=== PATIENT | female | born 2005 | race Caucasian/White ===

== ENCOUNTER 2025-09-01 08:37 | Emergency (ER) | payer BC, SELFPAY ==
--- OUTSIDE RECORDS SUMMARY | 2025-08-21 14:15 | XMS_ITS | Encounter Summary ---
Author Organization [facility] tem Address [id number] [address] [place] [address] Care Team Providers Care Gauge Maker Name Role Phone Foster Cruz PA-C Primary Care Provider [phone] Reason for Visit * Reason Comments Injection Patient presents for a depo provera injection. Encounter Details Date Type Department Care Team (Latest Contact Info) Description 08/21/2025 2:15 PM EDT Procedure visit [facility] [address] [facility] [place] [address] Althea Monterroso, DIGITAL RETOUCHER-MANDREL MAKER [address] [place], [place] [id number] Encounter for surveillance of injectable contraceptive (Primary Dx) Social History Tobacco Use Types Packs/Day Years Used Date Smoking Tobacco: Never Smokeless Tobacco: Never Alcohol Use Standard Drinks/Week Comments No 0 (1 standard drink = 0.6 oz pur e alcohol) Pt states attempted once. PHQ-2 Answer Date Recorded Total Score 1 06/02/2025 Childcare Answer Date Recorded Childcare Unknown 05/01/2019 Employment Answer Date Recorded Employment Unknown 05/01/2019 Hunger Screening Answer Date Recorded Within the past 12 months we worried whether our food would run out before we got money to buy more. Never True 08/21/2025 Within the past 12 months th e food we bought just didn't last and we didn't have money to get more. Never True 08/21/2025 Purpose - Life Answer Date Recorded Purpose and direction in life Unknown Comments No Sex and Gender Information Value Date Recorded Sex Assigned at Not on file Legal Sex Female 6:56 PM EDT Gender Identity Not on file Sexual Orientation Not on file documented as of this encounter Last Filed Vital Signs Vital Sign Reading Time Taken Comments Blood Pressure 104/60 08/21/2025 2:13 PM EDT Pulse - - Temperature - - Respiratory Rate - - Oxygen Saturation - - Inhaled Oxygen Concentration - - Weight 48.3 kg (106 lb 6.4 oz) 08/21/2025 2:13 P M EDT Height 162.6 cm (5' 4 ) 08/21/2025 2:13 PM EDT Body Mass Index 18.26 08/21/2025 2:13 PM EDT documented in this encounter Progress Notes * Destiny Saha MA - 08/21/2025 2:15 PM EDT Patient is here for DepoProvera IM administration. Medical history reviewed. Pt denies abnormal bleeding, concerns related to Depo. Injection administered to __left gluteal . Pt tolerated well, no adverse reactions noted. Patient to return to clinic for next Depo Administration in 10-12 weeks or PRN. Depo calendar given. * JANELLE Hastings - 08/21/2025 2:15 PM EDT Patient here for depo provera, not seen by provider. Depo administered by VALENTIN / nurse and patient tolerated well. Due for next annual roller skate repairer exam May 2026. JANELLE Hastings 08/21/25 1457 documented in this encounter Plan of Treatment Upcoming Encounters Date Type Department Care Team (Late st Contact Info) Description 11/06/2025 2:15 PM EST Procedure visit [facility] [address] [place] [address] Althea Monterroso APRN-MANDREL MAKER [address] [place] [address] documented as of this encounter Visit Diagnoses Diagnosis Encounter for surveillance of injectable contraceptive- Primary documented in this encounter Administered Medications Inactive Administered Medications - up to 3 most recent administrations Medication Order MAR Action Action Date Dose Rate Site medroxyPROGESTERone (DEPO-PROVERA) injection 150 mg 150 mg, intramuscular, Once, On Damari 08/21/25 at 1445, For 1 dose, Look-alike/sound-alike medication - verify indication for use., Indications: contraceptionIndications: contraception Given 08/21/2025 2:41 PM EDT 150 mg Left Upper Outer Quadrant documented in this encounter Additional Health Concerns Assessment Noted Time PHQ-9 Depression Total Score: 1 06/02/20 25 3:26 PM EDT documented as of this encounter Care Teams Gauge Maker Relationship Specialty Start Date End Date Foster Cruz PA-C PCP - General Physician Hand Ironer 10/04/23 08/26/25 documented as of this encounter
[2025-09-01 08:41] VITALS: BP 108/71; PULSE 69; TEMP 36.5; O2SAT 99; BMI 18.2
[2025-09-01 09:04] LABS: Glucose Urine UA NEGATIVE (NEGATIVE)
--- NOTE | 2025-09-01 09:04 | CT_ITS ---
[address] [address] Patient Name: FERNANDO BENNETT MRN: [id number] date: 2005 Sex: F Assigned Patient Location: ED.MAIN Current Patient Location: ED.MAIN Accession/Order Number: [id number] Exam Date: 09/01/2025 09:18 Report Date: 09/01/2025 09:32 At the request of: REYNALDO OTERO MD Procedure: CT abdomen pelvis wo con CT abdomen pelvis wo con 09/01/2025 9:21 AM SIGNS AND SYMPTOMS: ^left flank pain, r/o stone TECHNIQUE: Multidetector ct axial images of the abdomen and pelvis were obtained without IV contrast. Multiplanar reformats were performed and reviewed to further define anatomy and possible pathology. CT was performed with one or more of the following dose reduction techniques: Automated exposure control, adjustment of the mA and/or kV according to patient size, or use of iterative reconstruction technique. COMPARISON: None. FINDINGS: Lower Chest: Within normal limits. ABDOMEN: Liver: Within normal limits. Bile Ducts: Normal caliber. Gallbladder: Previously removed Pancreas: Within normal limits. Spleen: Within normal limits. Adrenals: Within normal limits. Kidneys: Nonobstructing renal stones are present bilaterally measuring up to 2 mm in greatest dimension. No hydronephrosis. Pelvis: Reproductive Organs: No pelvic masses. Ureters: Within normal limits. Bladder: Within normal limits. Bowel: There is a normal appendix in the right lower quadrant. Mesenteric Lymph Nodes: No enlarged mesenteric lymph nodes. Peritoneum: No ascites or free air, no fluid collection. Vessels: within normal limits Retroperitoneum: Within normal limits. Abdominal Wall: Within normal limits. Bones: Within normal limits. CT/CT abdomen pelvis wo con IMPRESSION: No bowel obstruction or obstructive uropathy. No evidence of free fluid or free air. Nonobstructing renal stones are noted bilaterally measuring up to 2 mm in greatest dimension. There is a normal appendix in the right lower quadrant. Impression dictated by: Elijah Pina M.D. 09/01/2025 9:32 AM Dictation Location: [place] [address] Electronically authenticated by: [id number] Date: 09/01/2025 09:32
[2025-09-01 09:05] LABS: HCG Qualitative Urine* NEGATIVE (NEGATIVE)
--- NOTE | 2025-09-01 09:05 | ED_ITS ---
HPI HPI - General Adult General Chief complaint: Urogenital-Female Stated complaint: LEFT SIDE PAIN, DIZZINESS Time Seen by Provider: 09/01/25 08:42 Source: patient and family Mode of arrival: walk-in History of Present Illness HPI narrative: 20-year-old female presents for left flank pain. No injury. She has been having issues like this on and off since June, 2 months ago. She had an ultrasound which showed a possible kidney stone but she has not seen a urologist. No gross hematuria recently. No fever or vomiting. The pain is now in the left side of her abdomen. Related Data Home Medications ?Medication ?Instructions ?Recorded ?Confirmed ketorolac 10 mg tablet mg 09/01/25 medroxyprogesterone 150 mg/mL 300 mg IM .monthly 09/0109/01/25 intramuscular suspension (Depo-Provera) ondansetron 4 mg disintegrating mg 09/01/25 tablet tamsulosin 0.4 mg capsule mg PO 09/01/25 Allergies Allergy/AdvReac Type Severity Reaction Status Date / Time No Known Drug Allergies Allergy Verified 09/01/25 08:52 Opioid HPI Opioid Management Most Recent Opioid Data: Last Pain Scale 8 Today, 08:55 Review of Systems ROS Narrative A ten point review of systems is negative except as noted above. PFSH PFSH Social History Little interest or pleasure in doing things: not at all Feeling down, depressed, or hopeless: not at all Exam Narrative Exam Narrative: Nurses note and vital signs reviewed and patient is not hypoxic. General:The patient appears in no apparent distress.Patient is resting comfortably on cart. Skin:Warm, dry, no pallor noted.There is no rash noted, including in the flank area. Head:Normocephalic, atraumatic Eye: Normal conjunctiva, no drainage Ears, Nose, Mouth, and Throat: oral mucosa is moist. Nares patent. Cardiovascular:Regular Rate and Rhythm Respiratory:Patient is in no distress, no accessory muscle use, lungs are clear to auscultation, no wheezing, rales or rhonchi Back:non-tender, no bruise or rash present GI: Minimal tenderness on the left side of her abdomen without distention or mass Musculoskeletal: The patient has no evidence of calf tenderness, no pitting edema, symmetrical pulses noted bilaterally Neurological:A&O, normal speech Psychiatric:Cooperative Constitutional Vital Signs, click to edit/add: Last Vital Signs Temp 97.7 F 09/01/25 08:41 Pulse 69 09/01/25 08:41 Resp 16 09/01/25 08:41 BP 108/71 09/01/25 08:41 Pulse Ox 99 09/01/25 08:41 O2 Del Method Room Air 09/01/25 08:41 Course Vital Signs Vital signs: Vital Signs Temperature 97.7 F 09/01/25 08:41 Pulse Rate 69 09/01/25 08:41 Respiratory Rate 16 09/01/25 08:41 Blood Pressure 108/71 09/01/25 08:41 Pulse Oximetry 99 09/01/25 08:41 Oxygen Delivery Method Room Air 09/01/25 08:41 Temperature 97.7 F 09/01/25 08:41 Pulse Rate 69 09/01/25 08:41 Respiratory Rate 16 09/01/25 08:41 Blood Pressure 108/71 09/01/25 08:41 Pulse Oximetry 99 09/01/25 08:41 Oxygen Delivery Method Room Air 09/01/25 08:41 Medical Decision Making MDM Narrative Medical decision making narrative: CT scan shows a small stone in each kidney but no obstruction and no ureteral stones. Urinalysis is negative, no blood or evidence of infection. She is not . She is referred to urology. Treatment diagnosis and follow-up were discussed with the patient and her parents. Differential Diagnosis Differential Diagnosis: Kidney stone, muscle pain, UTI Lab Data Lab results reviewed: Yes I reviewed the patient's lab results Labs: Lab Results 09/01/25 09/01/25 Range/Units 08:56 09:13 WBC 8.8 (4.0-11.0) 10^3/uL RBC 4.60 (4.20-5.40) 10^6/uL Hgb 14.0 (12.0-16.0) g/dL Hct 40.8 (36.0-48.0) % MCV 88.7 (81.0-99.0) fL MCH 30.4 (26.7-34.0) pg MCHC 34.3 (29.9-35.2) g/dL RDW 12.0 (11.0-15.0) % Plt Count 288 (150-450) 10^3/uL MPV 11.2 (9.5-13.5) fL Neut % (Auto) 68.1 (43.0-75.0) % Lymph % (Auto) 22.9 (20.5-60.0) % [place] % (Auto) 6.4 (1.7-12.0) % Eos % (Auto) 1.5 (0.9-7.0) % Baso % (Auto) 1.0 (0.2-2.0) % Neut # (Auto) 6.0 (1.4-6.5) 10^3/uL Lymph # (Auto) 2.0 (1.2-3.8) 10^3/uL Jewell # (Auto) 0.6 (0.3-0.8) 10^3/uL Eos # (Auto) 0.1 (0.0-0.7) 10^3/uL Baso # (Auto) 0.1 (0.0-0.1) 10^3/uL Abs Immat Gran (auto) 0.01 (0.00-0.03) 10^3/uL Imm/Tot Granulo (auto) 0.1 (0.0-0.5) % Sodium 142 (136-145) mmol/L Potassium 3.8 (3.5-5.1) mmol/L Chloride 106 (98-107) mmol/L Carbon Dioxide 25.4 (21.0-32.0) mmol/L Anion Gap 14.4 BUN 10.0 (7.0-18.0) mg/dL Creatinine 0.48 L (0.55-1.02) mg/dL Est GFR ( Amer) >60 (>=60 mL/min/1.73m^2) Est GFR (Non-Af Amer) >60 (>=60 mL/min/1.73m^2) BUN/Creatinine Ratio 20.8 Glucose 90 (74-106) mg/dL Calcium 9.1 (8.5-10.1) mg/dL Urine Color Yellow (YELLOW) Urine Clarity Clear (CLEAR) Urine pH 6.0 (5.0-9.0) Ur Specific [place] 1.025 (1.005-1.025) Urine Protein Negative (NEG/TRACE) mg/dL Urine Glucose (UA) Negative (NEGATIVE) mg/dL Urine Ketones Negative (NEGATIVE) mg/dL Urine Occult Blood Negative (NEGATIVE) Urine Nitrite Negative (NEGATIVE) Urine Bilirubin Negative (NEGATIVE) Urine Urobilinogen 0.2 (0.2-1.0) EU/dL Ur Leukocyte Esterase Negative (NEGATIVE) Urine RBC 0-2 (0-2) #/HPF Urine WBC None seen (NONE SEEN) #/HPF Ur Squamous Epith Cells Few A (NONE/RARE) #/LPF Urine Crystals None seen (None Seen) #/HPF Urine Bacteria Trace A (NONE SEEN) #/HPF Urine Casts None seen (NONE SEEN) #/LPF Urine Mucus None seen (NONE SEEN) Ur Culture Indicated? No Urine HCG, Qual Negative (NEGATIVE) Imaging Data CT scan - abdomen: Radiologist's impression: ITS Impressions Abdomen/Pelvis CT 09/01/25 09:04 IMPRESSION: No bowel obstruction or obstructive uropathy. No evidence of free fluid or free air. Nonobstructing renal stones are noted bilaterally measuring up to 2 mm in greatest dimension. There is a normal appendix in the right lower quadrant. Impression dictated by: Elijah Pina M.D. 09/01/2025 9:32 AM Dictation Location[email or web address] Electronically authenticated by: [id number] Y Date: 09/01/2025 09:32 Discharge Plan Discharge Chief Complaint: Urogenital-Female Clinical Impression: Flank pain Patient Disposition: Home, Self-Care Time of Disposition Decision: 09:56 Condition: Good Mode of Transportation: Private Vehicle Prescriptions / Home Meds: No Action ketorolac 10 mg tablet tamsulosin 0.4 mg capsule PO ondansetron 4 mg tablet,disintegrating medroxyprogesterone [Depo-Provera] 150 mg/mL suspension 300 mg IM .monthly Print Language: Lao Instructions: Flank Pain (ED) Referrals: [facility] [Primary Care Provider, Unknown] - 1 week Jason Chan MD [Physician, Urology]
--- OUTSIDE RECORDS SUMMARY | 2025-09-01 09:19 | XMS_ITS | Clinical Summary ---
Author Organization [facility] tem Address [id number] [address] [place] [address] Care Team Providers Care Blender Conveyor Operator Name Role Phone GonzálesSuzanna gustafsonpayam Terrazas APRN-MARKETING ANALYTICS SPECIALIST Primary Care Provide r Allergies No known active allergies Medications medroxyPROGESTERon e (DEPO-PROVERA) 150 mg/mL injection Inject 1 mL (150 mg total) into the appropriate muscle every 3 (three) months. Active ketorolac (TORADOL) 10 mg tablet Take 1 tablet (10 mg total) by mouth every 6 (six) hours as needed for pain. 20 tablet 08/15/20 25 Active ondansetron ODT (ZOFRAN ODT) 4 mg disintegrating tablet Dissolve 1 tablet (4 mg total) on tongue every 6 (six) hours as needed for nausea or vomiting for up to 30 days. 10 tablet 08/15/20 25 025 Active Hospital, Clinic, or Other Facility Administered Medication Ordered Dose Route Frequency Start Date End Date Status medroxyPROGESTERone (DEPO-PROVERA) injection 150 mgIndications: contraception 150 mg IM Once 08/21/2025 08/21/2025 Ended Active Problems No known active problems Encounters Date Type Department Care Team Description 08/21/2025 2:15 PM EDT Procedure visit [facility]necolo gy [address] [place] [id number] Althea Monterroso, WINSTON-MARKETING ANALYTICS SPECIALIST Encounter for surveillance of injectable contraceptive (Primary Dx) 08/21/2025 Travel 08/15/2025 9:23 AM EDT - 08/15/2025 12:19 PM EDT Emergency [facility] - Emergency [address] [place] [phone] Judi Garnett DO Right flank pain (Primary Dx); Right lower quadrant abdominal pain Discharge Disposition: Home 08/15/2025 Travel 06/24/2025 2:29 PM EDT - 06/24/2025 11:59 PM EDT Hospital Encounter [facility] - CT Imaging [address] [place] [address] RLQ abdominal pain Discharge Disposition: Home 06/24/2025 Travel 06/05/2025 Results Follow-Up [facility]necolo [facility] [address] [place] [id number] Yennifer Bennett, MD [facility]ERGY IMMUNOLOGY[facility] Thin Prep Pap Test 06/02/2025 3:30 PM EDT Office Visit [facility]/Gynecolo gy [address] [place] [address] Yisel Mitchell MD Encounter for gynecological examination (general) (routine) without abnormal findings (Primary Dx); Encounter for surveillance of injectable contraceptive; Cervical smear, as part of routine gynecological examination 06/01/2025 Travel from Last 3 Months Family History Medical History Relation Name Comments No Known Problems Father Epilepsy Mother Breast cancer Neg Hx Colon cancer Neg Hx Ovarian cancer Neg Hx Uterine cancer Neg Hx Relation Name Status Comments Father Alive Mother Alive Social History Tobacco Use Types Packs/Day Years [...] on file Sexual Orientation Not on file Last Filed Vital Signs Vital Sign Reading Time Taken Comments Blood Pressure 104/60 08/21/2025 2:13 PM EDT Pulse 79 08/15/2025 12:14 PM EDT Temperature 36.5 C (97.7 F) 08/15/2025 9:28 AM EDT Respiratory Rate 18 08/15/2025 12:14 PM EDT Oxygen Saturation 100% 08/15/2025 12:14 PM EDT Inhaled Oxygen Concentration - - Weight 48.3 kg (106 lb 6.4 oz) 08/21/2025 2:13 P M EDT Height 162.6 cm (5' 4 ) 08/21/2025 2:13 PM EDT Body Mass Index 18.26 08/21/2025 2:13 PM EDT Plan of Treatment Upcoming Encounters Date Type Department Care Team (Late st Contact Info) Description 11/06/2025 2:15 PM EST Procedure visit [facility]ne[facility] [address] [facility] [phone] Althea Monterroso, MD ALLERGY IMMUNOLOGY-MARKETING ANALYTICS SPECIALIST [address] [place], [place] [id number] Health Maintenance Due Date Last Done Comments Chlamydia Screening 2004 Adult BMI Follow Up Plan 2022 Influenza Vaccine 07/21/2025 DTaP,Tdap and Td Vaccines (7 - Td or Tdap) 04/29/2026 04/29/2016, 06/04/2009, 06/07/2005, Additional history exists Depression Screening 06/02/2026 06/02/2025 Adult BMI Screening 08/21/2026 08/21/2025 Tobacco Screening 08/21/2026 08/21/2025 Pap Smear 06/02/2028 06/02/2025 Medical Devices Not on file Procedures Procedure Name Priority Date/Time Associated Diagnosis Comments US RETROPERITONEAL COMPLETE STAT 08/15/2025 10:30 AM EDT EXTRA TUBES BLUE TOP Routine 08/15/2025 9:54 AM EDT EXTRA TUBES Routine 08/15/2025 9:54 AM EDT BASIC METABOLIC PANEL STAT 08/15/2025 9:54 AM EDT CBC WITH AUTO DIFFERENTIAL STAT 08/15/2025 9:54 AM EDT POCT , URINE (NUCG) Routine 08/15/2025 9:45 AM EDT POCT NURSING URINE MACROSCOPIC UA Routine 08/15/2025 9:44 AM EDT ER EXTRA URINE MARBLE STAT 08/15/2025 9:42 AM EDT ER EXTRA URINE STAT 08/15/2025 9:42 AM EDT URINALYSIS Routine 06/25/2025 2:27 PM EDT Tubulo-interstitial nephritis, not specified as acute or chronic URINE CULTURE Routine 06/25/2025 2:27 PM EDT Tubulo-interstitial nephritis, not specified as acute or chronic CT ABDOMEN AND PELVIS WO CONT STAT 06/24/2025 3:26 PM EDT RLQ abdominal pain BILIRUBIN, DIRECT Routine 06/24/2025 2:2 3 PM EDT Right lower quadrant pain URINALYSIS Routine 06/24/2025 2:23 PM EDT Right lower quadrant pain COMPREHENSIVE METABOLIC PANEL Routine 06/24/2025 2:23 PM EDT Right lower quadrant pain CBC WITH AUTO DIFFERENTIAL Routine 06/24/2025 2:23 PM EDT Right lower quadrant pain , URINE Routine 06/24/2025 2:21 PM EDT Right lower quadrant pain THIN PREP PAP TEST Routine 06/02/2025 4: 15 PM EDT Cervical smear, as part of routine gynecological examination from Last 3 Months Results * Ultrasound retroperitoneal complete (08/15/2025 10:30 AM EDT) Anatomical Region Laterality Modality Body Ultrasound 08/15/2025 10:3 7 AM EDT Narrative 08/15/2025 10:40 AM EDT HISTORY: A 20-year-old female with a history of the abdominal and flank pain. Nephrolithiasis is suspected. TECHNIQUE: Multiple real-time images of the both kidneys and the urinary bladder are obtained. Color Doppler study is performed. COMPARISON: Comparison is made with the CT scan of the abdomen and pelvis of 06/24/2025. FINDINGS: Both kidneys are normal in position and configuration. Right kidney measures 10.6 x 3.2 x 5.3 Cms. Right renal cortical thickness measures 0.6 Cms . Left kidney measures 10.0 x 3.6 x 5.0 Cms. Left renal cortical thickness measures 0.5 Cms. There are multiple tiny echogenic foci in the both kidneys suggestive of calculi. No evidence of significant hydronephrosis in the either kidney. Renal cortical echoes are within normal limits. No evidence of cystic or solid renal mass. Prevoid urinary bladder volume is 313 mL. Bilateral ureteric jets are visualized. No intraluminal abnormality seen. Post void examination reveals small amount of residual urine and measures 13 mL. IMPRESSION: * Bilateral intrarenal echogenic calculi. No evidence of hydronephrosis. * No evidence of cystic or solid renal mass. * Small amount of post void residual urine and measures 13 mL. Finalized by Shaq Rodas MD on 08/15/2025 10:40 AM Procedure Note Shaq Rodas MD - 08/15/2025 HISTORY: A 20-year-old female with a history of the abdominal and flankpain. Nephrolithiasis is suspected. TECHNIQUE: Multiple real-time images of the both kidneys and the urinarybladder are obtained. Color Doppler study is performed. COMPARISON: Comparison is made with the CT scan of the abdomen and pelvisof 06/24/2025. FINDINGS: Both kidneys are normal in position and configuration. Rightkidney measures 10.6 x 3.2 x 5.3 Cms. Right renal cortical thicknessmeasures 0.6 Cms . Left kidney measures 10.0 x 3.6 x 5.0 Cms. Leftrenal cortical thickness measures 0.5 Cms. There are multiple tiny echogenic foci in the both kidneys suggestive ofcalculi. No evidence of significant hydronephrosis in the either kidney. Renal cortical echoes are within normal limits. No evidence of cystic orsolid renal mass. Prevoid urinary bladder volume is 313 mL. Bilateral ureteric jets arevisualized. No intraluminal abnormality seen. Post void examinationreveals small amount of residual urine and measures 13 mL. IMPRESSION: * Bilateral intrarenal echogenic calculi. No evidence ofhydronephrosis. * No evidence of cystic or solid renal mass. * Small amount of post void residual urine and measures 13 mL. Finalized by Shaq Rodas MD on 08/15/2025 10:40 AM us Judi Garnett DO IMG US ORDERABLES Final Resu lt * Light Blue Top (08/15/2025 9:54 AM EDT) Extra Tube Auto Resulted 08/15/2025 11:[address] [facility] Blood Venous blood / Unknown 08/15/2025 9:54 AM EDT 08/15/2025 9:56 AM EDT us Judi Garnett DO LAB BLOOD ORDERABLES Final R esult [facility] [address] [place] [address], [place] * CBC auto differential (08/15/2025 9:54 AM EDT) Only the most recent of2 resultswithin the time period is included. Pathologist [facility] WBC 7.5 4 - 11 x10E9/L 08/15/2025 10:[address] [facility] RBC Count 4.67 3.8 - 5.2 X10E12/L 08/15/2025 10:[address] [facility] Hemoglobin 14.0 11.7 - 15.5 g/dL 08/15/2025 10:[address] [facility] Hematocrit 41.0 35 - 47 % 08/15/2025 10:[address] [facility] MCV 88 80 - 100 fL 08/15/2025 10:[address] [facility] MCH 30.1 27 - 34 pg 08/15/2025 10:[address] [facility] MCHC 34.2 32 - 36 g/dL 08/15/2025 10:[address] [facility] RDW 12.6 11.5 - 15 % 08/15/2025 10:[address] [facility] Platelet Count 268 150 - 450 X10E9/L 08/15/2025 10:[address] [facility] MPV 9.2 7 - 12 fL 08/15/2025 10:[address] [facility] Neutrophils % 62.7 % 08/15/2025 10:[address] [facility] Lymphocytes % 28.1 % 08/15/2025 10:[address] [facility] Monocytes % 7.3 % 08/15/2025 10:[address] [facility] Eosinophils % 1.0 % 08/15/2025 10:[address] [facility] Basophils % 0.9 % 08/15/2025 10:[address] [facility] Neutrophils Absolute (A) 4.7 1.5 - 6.6 10*3/uL 08/15/2025 10:[address] [facility] Lymphocytes Absolute 2.1 1.0 - 3.5 10*3/uL 08/15/2025 10:[address] [facility] Monocytes Absolute 0.6 0.0 - 0.9 10*3/uL 08/15/2025 10:[address] [facility] Eosinophils Absolute 0.1 0.0 - 0.4 10*3/uL 08/15/2025 10:[address] [facility] Basophils Absolute 0.1 0.0 - 0.2 10*3/uL 08/15/2025 10:[address] [facility] Differential Type AUTOMATED DIFFERENTIAL 08/15/2025 10:[address] [facility] Blood Venous blood / Unknown Venipuncture / Unknown 08/15/2025 9:54 AM EDT 08/15/2025 9:56 AM EDT us Judi Garnett DO LAB BLOOD ORDERABLES Final R esult Performing Organization Address City/State/[facility] Co de Phone Number [facility] [address] [place] [address], * (ABNORMAL) Basic Metabolic Panel (08/15/2025 9:54 AM EDT) SODIUM 140 134 - 146 mmol/L 08/15/2025 10:[address] [facility] POTASSIUM 3.3(L) 3.5 - 5.0 mmol/L 08/15/2025 10:[address] [facility] CHLORIDE 108 98 - 109 mmol/L 08/15/2025 10:[address] [facility] CARBON DIOXIDE 21(L) 22 - 32 mmol/L 08/15/2025 10:[address] [facility] ANION GAP 11 5 - 15 mmol/L 08/15/2025 10:[address] [facility] BLOOD UREA NITROGEN 10 5 - 23 mg/dL 08/15/2025 10:[address] [facility] CREATININE 0.48 0.40 - 1.00 mg/dL 08/15/2025 10:[address] [facility] Comment:METHOD TRACEABLE TO IDMS STANDARD GLUCOSE 98 65 - 99 mg/dL 08/15/2025 10:[address] [facility] CALCIUM 9.5 8.5 - 10.5 mg/dL 08/15/2025 10:[address] [facility] EGFR Non-Race Dependent >90 >=60 ml/min/1.7 3sq.m 08/15/2025 10:[address] [facility] Comment: eGFR not reported due to non-numeric value for Creatinine. Reported eGFR is based on the CKD-EPI 2020 equation that does not use a race coefficient. Blood Venous blood / Unknown Venipuncture / Unknown 08/15/2025 9:54 AM EDT 08/15/2025 9:56 AM EDT us Judi Garnett DO LAB BLOOD ORDERABLES Final R esult Performing Organization Address City/[facility]/ZIP Co de Phone Number [address] [place] [address], [place] * POCT , urine (08/15/2025 9:45 AM EDT) [facility] POC Urine Negative Negative, Indeterminate 08/15/2025 9:[address] [facility] Urine 08/15/2025 9:45 AM EDT 08/15/2025 9:52 AM EDT us Judi Garnett DO POINT OF CARE TEST ORDERABLE S Final Result Performing Organization Address City/[facility]/ZIP Co de Phone Number [address] [address], [place] * (ABNORMAL) POCT Nursing Urine Macroscopic UA (08/15/2025 9:44 AM EDT) Pathologist [facility] POC Urine Specific [place] 1.010 1.010, 1.015, 1.020, 1.025 08/15/2025 9:[address] [facility] POC Urine Leukocyte Esterase Negative Negative 08/15/2025 9:[address] [facility] POC Urine Nitrite Negative Negative 08/15/2025 9:[address] [facility] POC Urine pH 6.5 5.0, 6.0, 6.5, 7.0, 7.5, 8.0, 8.5, 5.5 08/15/2025 9:[address] [facility] POC Urine Protein Negative Negative 08/15/2025 9:[address] [facility] POC Urine Glucose Negative Negative 08/15/2025 9:[address] [facility] POC Urine Ketones Negative Negative 08/15/2025 9:[address] [facility] POC Urine Urobilinogen 0.2 E.U./dL 08/15/2025 9:[address] [facility] POC Urine Bilirubin Negative Negative 08/15/2025 9:[address] [facility] POC Urine Blood/HGB Trace(A) Negative 08/15/2025 9:[address] [facility] Urine 08/15/2025 9:44 AM EDT 08/15/2025 9:46 AM EDT us Judi Garnett DO POINT OF CARE TEST ORDERABLE S Final Result Performing Organization Address City/State/[facility] de Phone Number [facility] [address] [place] [address], * Extra Urine [place] (08/15/2025 9:42 AM EDT) Extra Tube Auto Resulted 08/15/2025 11:[address] [facility] Urine Urine specimen collection, clean catch / Unknown 08/15/2025 9:42 AM EDT 08/15/2025 9:57 AM EDT us Judi L Fenton DO URINE ORDERABLES Final Resul t Performing Organization Address City/[facility]/ZIP Co de Phone Number [address] [place] [address], [place] * Extra Urine (08/15/2025 9:42 AM EDT) Extra Tube Auto Resulted 08/15/2025 11:[address] [facility] Urine Urine specimen collection, clean catch / Unknown 08/15/2025 9:42 AM EDT 08/15/2025 9:57 AM EDT us Judi Terrazas Tamir DO URINE ORDERABLES Final Resul t Performing Organization Address [facility] Co de Phone Number [address] [place] [address], [place] * (ABNORMAL) Urinalysis (06/25/2025 2:27 PM EDT) Only the most recent of2 resultswithin the time period is included. COLOR Yellow Yellow 06/25/2025 7:18 PM EDT [facility] TURBIDITY Cloudy(A) Clear 06/25/2025 7:18 PM EDT [facility] SPECIFIC GRAVITY 1.034 1.003 - 1.035 06/25/2025 7:18 PM EDT [facility] NITRITE Negative Negative 06/25/2025 7:18 PM EDT [facility] PH,URINE 6.0 5.0 - 8.5 06/25/2025 7:18 PM EDT [facility] LEUKOCYTE ESTERASE Large(A) Negative 06/25/2025 7:18 PM EDT [facility] PROTEIN 30 mg/dL(A) Negative 06/25/2025 7:18 PM EDT [facility] KETONES (URINE) Negative Negative 7:18 PM EDT [facility] UROBILINOGEN <1.1 eu/dL <1.1 eu/dL 06/25/2025 7:18 PM EDT [facility] BILIRUBIN (URINE) Negative Negative 06/25/2025 7:18 PM EDT [facility] BLOOD/HGB Moderate(A) Negative 06/25/2025 7:18 PM EDT [facility] MUCOUS Present(A) None 06/25/2025 7:18 PM EDT [facility] R.B.CELLS 22(H) 0 - 5 06/25/2025 7:18 PM EDT [facility] SQUAMOUS EPITHELIUM 6(H) 0 - 5 06/25/2025 7:18 PM EDT [facility] W.B.CELLS 5 0 - 5 06/25/2025 7:18 PM EDT [facility] GLUCOSE (URINE) Negative Negative 7:18 PM EDT [facility] Urine Urine / Unknown Collection / Unknown 06/25/2025 2:27 PM EDT 06/25/2025 2:27 PM EDT us Toshia Lexus PatelGonzáles MD ALLERGY IMMUNOLOGY-MARKETING ANALYTICS SPECIALIST URINE ORDERABLES Olivia l Result [facility] [address] [place] [address], [place] [phone] * Urine culture (06/25/2025 2:27 PM EDT) CULTURE RESULTS NO GROWTH AT <1000 CFU/mL 06/26/2025 3:17 PM EDT [facility] Urine Urine specimen collection, clean catch / Unknown Collection / Unknown 06/25/2025 2:27 PM EDT 06/25/2025 2:27 PM EDT us Toshia L Gonzáles MD ALLERGY IMMUNOLOGY-MARKETING ANALYTICS SPECIALIST MICROBIOLOGY - GENERA L ORDERABLES Final Result [facility] [address] [place] [address], [place] [phone] * CT abdomen and pelvis without contrast (06/24/2025 3:26 PM EDT) Anatomical Region Laterality Modality Body, Abdomen, Body Covera N/A Compu nestor Tomography 06/24/2025 3:27 PM EDT Narrative 06/24/2025 3:32 PM EDT History:Right lower quadrant pain Exam: CT abdomen and pelvis without contrast. All CT scans at this facility use dose modulation, iterative reconstruction, and/or weight based dosing when appropriate to reduce radiation dose to as low as reasonably achievable. Comparison:12/07/2023 Findings: CT abdomen: There are no obstructing calcifications in the kidneys, ureters or urinary bladder. Small 1 to 2 mm calcifications in the mid, upper pole right kidney, mid, lower pole left kidney. No signs of obstruction. No free air or free fluid. No enlarged lymph nodes. No abdominal aortic aneurysm. Cholecystectomy. CT pelvis: No dilated bowel loops or pericolonic fat stranding. No enlarged pelvic or inguinal lymph nodes. No free fluid. No evidence for dilated appendix. Impression: No bowel or urinary tract obstruction. No free air or free fluid. Nonobstructing bilateral nephrolithiasis. Finalized by Wilmer Ayala MD on 06/24/2025 3:32 PM Procedure Note Wilmer Ayala MD - 06/24/2025 History:Right lower quadrant pain Exam: CT abdomen and pelvis without contrast. All CT scans at this facility use dose modulation, iterativereconstruction, and/or weight based dosing when appropriate to reduceradiation dose to as low as reasonably achievable. Comparison:12/07/2023 Findings: CT abdomen: There are no obstructing calcifications in the kidneys, ureters or urinarybladder. Small 1 to 2 mm calcifications in the mid, upper pole rightkidney, mid, lower pole left kidney. No signs of obstruction. No free airor free fluid. No enlarged lymph nodes. No abdominal aortic aneurysm. Cholecystectomy. CT pelvis: No dilated bowel loops or pericolonic fat stranding. No enlarged pelvic oringuinal lymph nodes. No free fluid. No evidence for dilated appendix. Impression: No bowel or urinary tract obstruction. No free air or free fluid. Nonobstructing bilateral nephrolithiasis. Finalized by Wilmer Ayala MD on 06/24/2025 3:32 PM us Toshia Gonzáles MD ALLERGY IMMUNOLOGY-MARKETING ANALYTICS SPECIALIST IMG CT ORDERABLES Fin al Result * Bilirubin, direct (06/24/2025 2:23 PM EDT) BILIRUBIN,DIRE CT 0.1 <=0.4 mg/dL 06/24/2025 7:27 PM EDT [facility] Blood Venous blood / Unknown Venipuncture / Unknown 06/24/2025 2:23 PM EDT 06/24/2025 2:23 PM EDT us Toshia Gonzáles MD ALLERGY IMMUNOLOGY-MARKETING ANALYTICS SPECIALIST LAB BLOOD ORDERABLES Final Result [facility] [address] [place] [address], [place] [phone] * Comprehensive metabolic panel (06/24/2025 2:23 PM EDT) [facility] SODIUM 142 134 - 146 mmol/L 06/24/2025 7:27 PM EDT [facility] POTASSIUM 3.5 3.5 - 5.0 mmol/L 06/24/2025 7:27 PM EDT [facility] CHLORIDE 108 98 - 109 mmol/L 06/24/2025 7:27 PM EDT [facility] CARBON DIOXIDE 25 22 - 32 mmol/L 06/24/2025 7:27 PM EDT [facility] ANION GAP 9 5 - 15 mmol/L 06/24/2025 7:27 PM EDT [facility] BLOOD UREA NITROGEN 11 5 - 23 mg/dL 06/24/2025 7:27 PM EDT [facility] CREATININE 0.66 0.40 - 1.00 mg/dL 06/24/2025 7:27 PM EDT [facility] Comment:METHOD TRACEABLE TO IDMS STANDARD GLUCOSE 92 65 - 99 mg/dL 06/24/2025 7:27 PM EDT [facility] CALCIUM 9.6 8.5 - 10.5 mg/dL 06/24/2025 7:27 PM EDT [facility] TOTAL PROTEIN 7.0 6.0 - 8.0 g/dL 06/24/2025 7:27 PM EDT [facility] ALBUMIN 4.7 3.2 - 5.3 g/dL 06/24/2025 7:27 PM EDT [facility] ALKALINE PHOSPHATASE 63 39 - 130 U/L 06/24/2025 7:27 PM EDT [facility] AST 17 <=41 U/L 06/24/2025 7:27 PM EDT [facility] ALT 13 <=31 U/L 06/24/2025 7:27 PM EDT [facility] BILIRUBIN,TOTAL 0.6 0.3 - 1.2 mg/dL 06/24/2025 7:27 PM EDT [facility] EGFR Non-Race Dependent >90 >=60 ml/min/1.7 3sq.m 06/24/2025 7:27 PM EDT [facility] Comment: Reported eGFR is based on the CKD-EPI 2020 equation that does not use a race coefficient. Blood Venous blood / Unknown Venipuncture / Unknown 06/24/2025 2:23 PM EDT 06/24/2025 2:23 PM EDT us Toshia Lexus Gonzáles MD ALLERGY IMMUNOLOGY-MARKETING ANALYTICS SPECIALIST LAB BLOOD ORDERABLES Final Result [facility] [address] [place] [address], [place] [phone] * , urine (06/24/2025 2:21 PM EDT) URINE Negative Negative 06/24/2025 3:[address] [facility] 06/24/2025 2:21 PM EDT 06/24/2025 2:47 PM EDT us Toshia L Gonzáles MD ALLERGY IMMUNOLOGY-MARKETING ANALYTICS SPECIALIST URINE ORDERABLES Olivia terrazas Result [facility] [address] [place] [address], [place] * Thin Prep Pap Test (06/02/2025 4:15 PM EDT) Case Report Gynecologic Cytology Report Case: [id number] Authorizing Provider: Yisel Mitchell MD Collected: 06/02/2025 161 [facility] Received: 06/02/2025 1615 Obstetrics/Gy necology First Screen: CONTRERAS Velasquez(ASCP) Specimen: Thin Prep Pap, Cervix 7:26 AM EDT [facility] Specimen Adequacy Satisfactory for evaluation, endocervical/t ransformation zone component present 7:26 AM EDT [facility] Interpretation NEGATIVE FOR INTRAEPITHELIA L LESION OR MALIGNANCY NEGATIVE FOR INTRAEPITHELIA L LESION OR MALIGNANCY, UNSATISFACTORY , EPITHELIAL CELL ABNORMALITY, GLANDULAR EPITHELIAL CELL ABNORMALITY. , SQUAMOUS EPITHELIAL CELL ABNORMALITY, NO DIAGNOSIS RENDERED. 7:26 AM EDT [facility] at 0726 EDT Additional Information The Pap test is a screening test with an inherent, but low, probability of error. The Pap test is primarily effective for the diagnosis and prevention of squamous cell carcinoma. Regular screening is critical for prevention. ThinPrep liquid-based slides, which meet the [employer]ato [employer] criteria for automated screening, have been screened by the [employer] BiometricsPrep Imaging System (as of 08/06/07) along with an additional manual rescreening by a cytotechnologi st and, if indicated, by a pathologist. 5 7:26 AM EDT [facility] Clinical Information none 5 7:26 AM EDT [facility] Embedded Images 7:26 AM EDT [facility] Thin Prep Cervix uteri structure / Unknown 06/02/2025 4:15 PM EDT 06/02/2025 4:15 PM EDT us Yisel Mitchell MD PATHOLOGY/CYTOLOGY ORDERABLES Final Result [facility] [address] [place] [address], from Last 3 Months Insurance [employer] Care Teams Blender Conveyor Operator Relationship Specialty Start Date End Date Toshia Gonzáles, MD ALLERGY IMMUNOLOGY-MARKETING ANALYTICS SPECIALIST [address] [place] [address] PCP - General Family Medicine 08/27/25
--- OUTSIDE RECORDS SUMMARY | 2025-09-01 09:19 | XMS_ITS | Encounter Summary ---
Author Organization [facility] tem Address [id number] [address] [place] [address] Care Team Providers Care Mill Platform Supervisor Name Role Phone Foster Cruz PA-C Primary Care Provider [phone] Encounter Details Date Type Department Care Team (Latest Contact Info) Description 08/21/2025 Travel Social History Tobacco Use Types Packs/Day Years [...] on file documented as of this encounter Plan of Treatment Upcoming Encounters Date Type Department Care Team (Late st Contact Info) Description 11/06/2025 2:15 PM EST Procedure visit [facility] [address] [place] [address] Althea Monterroso, MEETING SPECIALIST-NETWORK INFRASTRUCTURE ARCHITECT [address] [place] [address] documented as of this encounter Visit Diagnoses Not on filedocumented in this encounter Additional Health Concerns Assessment Noted Time PHQ-9 Depression Total Score: 1 06/02/20 25 3:26 PM EDT documented as of this encounter Care Teams Mill Platform Supervisor Relationship Specialty Start Date End Date Foster Cruz PA-C PCP - General Physician Cutter Banana Room 10/04/23 08/26/25 documented as of this encounter
[2025-09-01 09:21] LABS: Crystals Seen? None Seen #/HPF (None Seen)
[2025-09-01 09:22] LABS: Cast Seen? NONE SEEN #/LPF (NONE SEEN); Urine Culture Indicated NO
[2025-09-01 09:34] LABS: Hematocrit 40.8 % (36.0-48.0); Hemoglobin 14.0 g/dL (12.0-16.0); Immature Granulocytes Abs Auto 0.01 10^3/uL (0.00-0.03); Immature Granulocytes Pct Auto 0.1 % (0.0-0.5); Lymphocytes Absolute Auto 2.0 10^3/uL (1.2-3.8); Mean Corpuscular HGB Conc 34.3 g/dL (29.9-35.2); Mean Corpuscular Hemoglobin 30.4 pg (26.7-34.0); Mean Corpuscular Volume 88.7 fL (81.0-99.0); Platelet Count 288 10^3/uL (150-450); Red Blood Count 4.60 10^6/uL (4.20-5.40); White Blood Count 8.8 10^3/uL (4.0-11.0)
[2025-09-01 09:37] LABS: Anion Gap 14.4; Blood Urea Nitrogen 10.0 mg/dL (7.0-18.0); Calcium 9.1 mg/dL (8.5-10.1); Carbon Dioxide 25.4 mmol/L (21.0-32.0); Chloride 106 mmol/L (98-107); Estimated GFR (African America >60 (>=60 mL/min/1.73m^2); Estimated GFR (Non-African Ame >60 (>=60 mL/min/1.73m^2); Glucose 90 mg/dL (74-106); Potassium 3.8 mmol/L (3.5-5.1); Sodium 142 mmol/L (136-145)
[2025-09-01] MEDS: KETOROLAC TROMETHAMINE 30 MG/ML VIAL IVP (10:09)
[2025-09-01 10:21] VITALS: BP 90/56; PULSE 69; O2SAT 98
== END 2025-09-01 10:22 | disposition home or self-care (01) ==
PROVIDERS: Emergency Provider Emergency Medicine; Family Provider Internal Medicine
DX: R10.32 Left lower quadrant pain (principal)
CPT/HCPCS: 36415; 74176; 80048; 81001; 84703; 85025; 96374; 99284; J1885